=== PATIENT | male | born 1980 | race Caucasian/White ===

== ENCOUNTER 2018-08-03 15:51 | Emergency (ER) | payer OTHER ==
[~2018-08-03] VITALS: Ht 180.3 cm; Wt 94.1 kg
[~2018-08-03 15:51] MED LIST: BUSP30TA PO; LITH300T4 PO; MIRT45TA PO; RISP3TAB3 PO
[2018-08-03 16:00] VITALS: BP 131/109
--- NOTE | 2018-08-03 16:14 | NUR ---
38Y/M BIB SELF WITH REQUEST FOR MEDICATION REFILL FOR WELBUTRIN 100MG AND KLONOPIN 0.5MG. PT AAOX4, VSS, BED DOWN, LOW, LOCKED, BEDRAIL UP X 1, ER MD AWARE AND NOTIFIED OF PT STATUS. HX; ANXIETY RX; WELBUTRIN, KLONOPIN
--- NOTE | 2018-08-03 16:50 | NUR ---
Patient being evaluated by physician at bedside.
[2018-08-03 17:02] VITALS: BP 127/103
--- NOTE | 2018-08-03 17:02 | NUR ---
Patient discharged with v/s stable. Written and verbal after care instructions given and explained. Patient alert, oriented and verbalized understanding of instructions. Ambulatory with steady gait. All questions addressed prior to discharge. ID band removed. Patient advised to follow up with PMD. Rx of wellbuterin and clonazepam given. Patient educated on indication of medication including possible reaction and side effects. Opportunity to ask questions provided and answered.
== END 2018-08-03 17:02 | disposition home or self-care (01) ==
LOC: MED 15:51
DX: F41.9 Anxiety disorder, unspecified (principal); Z76.0 Encounter for issue of repeat prescription; Z79.899 Other long term (current) drug therapy
CPT/HCPCS: 99282; 99283; 99284

== ENCOUNTER 2020-04-21 06:22 | Emergency (ER) | payer MEDICAID, OTHER ==
[~2020-04-21] VITALS: Ht 180.3 cm; Wt 80.7 kg
[2020-04-21 06:26] VITALS: BP 151/86
--- NOTE | 2020-04-21 06:43 | NUR ---
PT ASSESSMENT COMPLETED BY HAMILTON ALVAREZ, NO NURSING INTERVENTION NEEDED AT THIS TIME.
[2020-04-21 06:44] VITALS: BP 151/86
--- NOTE | 2020-04-21 06:44 | NUR ---
Patient discharged with v/s stable. Written and verbal after care instructions given and explained. Patient alert, oriented and verbalized understanding of instructions. Ambulatory with steady gait. All questions addressed prior to discharge. ID band removed. Patient advised to follow up with PMD. Rx of GABAPENTIN given. Patient educated on indication of medication including possible reaction and side effects. Opportunity to ask questions provided and answered.
== END 2020-04-21 06:44 | disposition home or self-care (01) ==
LOC: MED 06:22
DX: F41.9 Anxiety disorder, unspecified (principal); F32.9 Major depressive disorder, single episode, unspecified; Z79.899 Other long term (current) drug therapy; Z76.0 Encounter for issue of repeat prescription
CPT/HCPCS: 99281

== ENCOUNTER 2022-11-14 03:15 | Emergency (ER) | payer MEDICAID ==
[~2022-11-14] VITALS: Ht 180.3 cm; Wt 72.6 kg
--- NOTE | 2022-11-14 03:15 | NUR ---
PT AILEEN WHITTEN, PREBOOK. TAKEN TO CHAIR
[2022-11-14 03:21] VITALS: BP 141/97
--- NOTE | 2022-11-14 04:06 | NUR ---
Dr. Roche examining patient.
[2022-11-14 04:22] VITALS: BP 141/97
--- NOTE | 2022-11-14 04:22 | NUR ---
PATIENT [facility]. PATIENT EXAMINED BY DR. DRUMMOND. PATIENT MEDICALLY CLEARED AND RELEASED IN CUSTODY IN STABLE CONDITION. ORIGINAL PRE-BOOK FORM GIVEN TO OFFICER BRYON.
== END 2022-11-14 04:22 ==
LOC: MED 03:15
DX: S00.03XA Contusion of scalp, initial encounter (principal); F15.90 Other stimulant use, unspecified, uncomplicated; V89.2XXA Person injured in unspecified motor-vehicle accident, traffic, initial encounter; Y93.89 Activity, other specified; Y92.89 Other specified places as the place of occurrence of the external cause; Y99.8 Other external cause status
CPT/HCPCS: 99283